=== PATIENT | male | born 1985 | race Caucasian/White ===

== ENCOUNTER 2023-06-12 05:49 | Emergency (ER) | payer OTHER ==
[2023-06-12 06:10] VITALS: TEMP 97.6
[2023-06-12] MEDS ORDERED: XYLOCAINE 1% HCL 20 ML MDV ONE (06:10)
[2023-06-12] MEDS ORDERED: XYLOCAINE 1% HCL 20 ML MDV IJ ONE (06:21)
--- NOTE | 2023-06-12 06:47 | ERPHSYRPT ---
- History of Present Illness Time Seen by Provider: 06/12/23 06:00 Source: patient Exam Limitations: no limitations Patient Subjective Stated Complaint: Slipped and fell down stairs and has small cut to lower right thumb in crease. Triage Nursing Assessment: Patient arrived with small laceration to right lower thumb in the creased area. States was getting ready to leave for work when slipped on some homemade rock stairs and cut his thumb. Laceration is 4cm x 0.5cm with bleeding currently controlled. Physician History: Patient is a 38-year-old male presents to our ED for evaluation of a laceration to his right hand. Patient states he was descending a step this morning on his way to work when he slipped on homemade rock stairs and injured his right thumb. Patient has a 4 cm laceration to the webspace of the right thumb. Injury occurred just prior to arrival. Pain described as an ache that is localized. No radiation. No other injuries reported. Tetanus is up-to-date. Patient voices no other complaints or concerns at this time. The fall was mechanical. It was not associated with any neuro cardiovascular symptomology. No chest pain or shortness of breath. No nausea vomiting or diaphoresis. No numbness tingling or weakness. Portions of this note were created with voice recognition technology. There may be grammatical, spelling, punctuation or sound alike errors Timing/Duration: today Severity: moderate Modifying Factors: Improves With: nothing Associated Symptoms: denies symptoms Allergies/Adverse Reactions: No Known Drug Allergies Allergy (Unverified 06/12/23 05:54) Home Medications: Omeprazole 40 mg PO DAILY 06/12/23 [History] Hx Tetanus, Diphtheria Vaccination/Date Given: No (patient is unsure) Hx Influenza Vaccination/Date Given: No Hx Pneumococcal Vaccination/Date Given: No Immunizations Up to Date: No Travel Risk - International Travel Have you traveled outside of the country in past 3 weeks: No - Coronavirus Screening Are you exhibiting any of the following symptoms?: No Close contact with a COVID-19 positive Pt in past 14-21 Days: No - Vaccine Status Have you recieved a Covid-19 vaccination: No - Review of Systems Constitutional: No Symptoms, No Fever, No Chills Eyes: No Symptoms Ears, Nose, & Throat: No Symptoms Respiratory: No Symptoms, No Cough, No Dyspnea Cardiac: No Symptoms, No Chest Pain, No Edema, No Syncope Abdominal/Gastrointestinal: No Symptoms, No Abdominal Pain, No Nausea, No Vomiting, No Diarrhea Genitourinary Symptoms: No Symptoms, No Dysuria Musculoskeletal: No Symptoms, No Back Pain, No Neck Pain Skin: No Symptoms, No Rash Neurological: No Symptoms, No Dizziness, No Focal Weakness, No Sensory Changes Psychological: No Symptoms Endocrine: No Symptoms Hematologic/Lymphatic: No Symptoms Immunological/Allergic: No Symptoms All Other Systems: Reviewed and Negative - Past Medical History Pertinent Past Medical History: Yes Neurological History: No Pertinent History ENT History: No Pertinent History Cardiac History: Hypertension Respiratory History: Asthma Endocrine Medical History: No Pertinent History Musculoskeletal History: No Pertinent History, Fractures GI Medical History: GERD History: No Pertinent History Psycho-Social History: No Pertinent History Male Reproductive Disorders: No Pertinent History Other Medical History: left collar bone several times - Past Surgical History Past Surgical History: Yes Neuro Surgical History: No Pertinent History Cardiac: No Pertinent History Respiratory: No Pertinent History Gastrointestinal: No Pertinent History Genitourinary: No Pertinent History Musculoskeletal: No Pertinent History Male Surgical History: No Pertinent History - Social History Smoking Status: Current every day smoker How long have you smoked: 7 Exposure to second hand smoke: Yes Drug Use: none Patient Lives Alone: No - Nursing Vital Signs Nursing Vital Signs: Initial Vital Signs Temperature 97.6 F 06/12/23 05:49 Pulse Rate 90 06/12/23 05:49 Respiratory Rate 20 06/12/23 05:49 Blood Pressure 174/108 06/12/23 05:49 O2 Sat by Pulse Oximetry 97 06/12/23 05:49 Pain Scale Pain Intensity 5 - Physical Exam General Appearance: no apparent distress, alert Eye Exam: PERRL/EOMI, eyes nml inspection Ears, Nose, Throat Exam: normal ENT inspection, TMs normal, pharynx normal, moist mucous membranes Neck Exam: normal inspection, non-tender, supple, full range of motion Respiratory Exam: normal breath sounds, lungs clear, airway intact, No respiratory distress Cardiovascular Exam: regular rate/rhythm, normal heart sounds, normal peripheral pulses Gastrointestinal/Abdomen Exam: soft, normal bowel sounds, No tenderness, No mass Back Exam: normal inspection, normal range of motion, No CVA tenderness, No vertebral tenderness Extremity Exam: normal inspection, normal range of motion, pelvis stable Neurologic Exam: alert, oriented x 3, cooperative, normal mood/affect, sensation nml, No motor deficits Skin Exam: normal color, warm, dry, No rash Lymphatic Exam: No adenopathy SpO2 Interpretation: normal SpO2: 97 O2 Delivery: Room Air Procedures - Laceration/Wound Repair Right Hand Time of Procedure: 06:30 Wound Location: Right Wound Length (cm): 4 Wound's Depth, Shape: superficial Wound Explored: clean Irrigated: Yes Hibiclens Prep: Yes Anesthesia: 1% Lidocaine Volume Anesthetic (ccs): 4 Wound Debrided: No debridement indicated Wound Repaired With: sutures Suture Size/Type: 5-0, ethilon Number of Sutures: 7 Layer Closure?: No Sterile Dressing Applied?: Yes Splint Applied?: Yes Type of Splint Applied: AlumaFoam Sling Applied?: No Progress: 38-year-old male presents to our ED with a laceration to his right hand. 7 simple interrupted sutures placed. Patient neurovascular intact distally pre and post procedure. No intra or postprocedural complications. 06/12/23 06:52 - Course Nursing assessment & vital signs reviewed: Yes - Radiology Exams Hand X-ray Interpretation: Interpreted by me (No fracture or dislocations. ) Ordered Tests: Active Orders 24 hr Category Date Time Status HAND (MINIMUM 3 VIEWS) Stat Exams 06/12/23 06:13 Taken Medication Summary Discontinued Medications Generic Name Dose Route Start Last Admin Trade Name Freq PRN Reason Stop Dose Admin Bacitracin Zinc Confirm 06/12/23 06:48 Bacitracin Packet 1 Each Pckt Administered 06/12/23 06:49 Dose 1 each .ROUTE .STK-MED ONE Lidocaine HCl Confirm 06/12/23 06:10 Lidocaine Hcl 1% 20 Ml Mdv 20 Ml Ml Administered 06/12/23 06:11 Dose 1 ml .ROUTE .STK-MED ONE Lidocaine HCl 5 ml 06/12/23 06:21 06/12/23 06:27 Lidocaine Hcl 1% 20 Ml Mdv 20 Ml Ml IJ 06/12/23 06:22 5 ml STAT ONE Administration - Progress Progress: improved Progress Note: Patient is a 38-year-old male presents to our ED for evaluation of a laceration to his right hand at the webspace between thumb and index finger. Patient states he slipped and fell at home. Patient has a 4 cm x 0.5 cm laceration. X- ray negative for fracture dislocation. 7 simple interrupted sutures using 5-0 Ethilon were placed. Patient tolerated procedure well. Patient neurovascular tact distally post procedure. A referral to orthopedic clinic for follow-up was provided. A prescription for Keflex forwarded to patient's pharmacy. Splint was applied. Patient agrees to follow-up as planned. He voices no other complaints or concerns at this time. No other injuries reported. Portions of this note were created with voice recognition technology. There may be grammatical, spelling, punctuation or sound alike errors Complexity of problems addressed is moderate acute complicated Complex of data reviewed and analyzed is moderate. Dr. Mancia independently reviewed x-rays of right hand. Risk of complication and or risk of morbidity/mortality of patient management is moderate. A prescription for Keflex forwarded to patient's pharmacy. Vital stable. Time spent to discharge patient is approximately 15 minutes. Plan of care established for shared decision making. No social determinants of health present impede follow-up. Portions of this note were created with voice recognition technology. There may be grammatical, spelling, punctuation or sound alike errors 06/12/23 06:54 Counseled pt/family regarding: diagnosis, need for follow-up, rad results - Departure Departure Disposition: Home Clinical Impression: Hand laceration Condition: Stable Critical Care Time: No Instructions: Laceration Repair With Stitches (DC) Additional Instructions: Discharge/Care Plan HERMILA WOO was seen on 06/12/23 in the Emergency Room. The patient was counseled regarding Diagnosis,Lab results, Imaging studies, need for follow up and when to return to the Emergency Room. Prescriptions given: Discharge Note I have spoken with the patient and/or caregivers. I have explained the patient's condition, diagnosis and treatment plan based on the information available to me at this time. I have answered the patient's and/or caregiver's questions and addressed any concerns. The patient and/or caregivers have as good understanding of the patient's diagnosis, condition and treatment plan as can be expected at this point. The vital signs have been stable. The patient's condition is stable and appropriate for discharge from the emergency department. The patient will pursue further outpatient evaluation with the primary care physician or other designated or consulting physician as outlined in the discharge instructions. The patient and/or caregivers are agreeable to this plan of care and follow-up instructions have been explained in detail. The patient and/or caregivers have received these instruction. The patient/and or caregivers are aware that any significant change in condition or worsening of symptoms should prompt an immediate return to this or the closest emergency department or call 911. Prescriptions: Cephalexin Mh 500 mg [Keflex 500 mg] 500 mg PO TID #21 cap Outpatient Orders: Ortho Referral Time Frame: 1 Day, Facility: [facility], Location: ORTHO CLINIC
[2023-06-12] MEDS ORDERED: BACIGUENT PACKET ONE (06:48)
[2023-06-12 07:05] VITALS: BP 136/89; PULSE 82; RESP 19; O2SAT 96
--- NOTE | 2023-06-12 09:07 | XRAY ---
Indication: Laceration. Comparison: None 3 view right hand obtained. No bony, articular, or soft tissue abnormalities.
== END 2023-06-12 07:01 | disposition home or self-care (01) ==
LOC: ED 05:49
DX: S61.411A Laceration without foreign body of right hand, initial encounter (principal); W10.8XXA Fall (on) (from) other stairs and steps, initial encounter; W26.8XXA Contact with other sharp object(s), not elsewhere classified, initial encounter
CPT/HCPCS: 12002; 73130; 96372; 99283; A9270-GY